=== PATIENT | female | born 1955 | race Asian ===

== ENCOUNTER 2020-05-12 04:33 | Emergency (ER) | payer OTHER ==
[~2020-05-12] VITALS: Ht 157.5 cm; Wt 67.6 kg
[2020-05-12 04:33] VITALS: BP 145/87
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
[2020-05-12] MEDS ORDERED: ACETAMINOPHEN 325 MG TAB PO ONE (05:00)
--- NOTE | 2020-05-12 05:35 | NUR ---
PT TAKEN TO XRAY/CT VIA W/C
--- NOTE | 2020-05-12 05:46 | NUR ---
PT RETURNED FROM CT VIA W/C
[2020-05-12 06:51] VITALS: BP 114/71
--- NOTE | 2020-05-12 06:51 | NUR ---
Patient discharged with v/s stable. Written and verbal after care instructions given and explained. Patient verbalized understanding. Ambulatory with steady gait. All questions addressed prior to discharge. Advised to follow up with PMD.
== END 2020-05-12 06:51 | disposition home or self-care (01) ==
LOC: MED 04:33
DX: R51 Headache (principal); M54.2 Cervicalgia; R07.9 Chest pain, unspecified; V89.2XXA Person injured in unspecified motor-vehicle accident, traffic, initial encounter; Y93.89 Activity, other specified; Y92.89 Other specified places as the place of occurrence of the external cause; Y99.8 Other external cause status
CPT/HCPCS: 70450; 71045; 72125; 99285